=== PATIENT | male | born 1955 | race Caucasian/White ===

== ENCOUNTER → 2021-11-22 13:35 | Outpatient (CLI) | payer OTHER, SELFPAY ==
[2021-11-22 14:45] LABS: Add Manual Diff / Slide Review NO; Basophils Absolute Auto 100 /uL (0-100); Basophils Percent Auto 0.8 % (0-2); Eosinophils Absolute Auto 100 /uL (0-450); Eosinophils Percent Auto 1.1 % (2-4); Hematocrit 44.3 % (41-53); Hemoglobin 15.3 g/dL (13.5-17.5); Lymphocytes Absolute Auto 2500 /uL (1100-4500); Lymphocytes Percent Auto 32.2 % (25-40); Mean Corpuscular HGB Conc 34.5 % (30-36); Mean Corpuscular Hemoglobin 31.5 PG (26-34); Mean Corpuscular Volume 91.4 fL (80-100); Monocytes Absolute Auto 600 /uL (0-900); Neutrophils Absolute Auto 4400 /uL (1500-7000); Neutrophils Percent Auto 57.9 % (50-75); Platelet Count 204 X10^3/uL (150-400); Red Blood Cell Count 4.85 X10^6/uL (4.5-5.9); Red Cell Distribution Width 13.5 % (11.6-14.8); White Blood Cell Count 7.6 X10^3/uL (4.5-11.0)
[2021-11-22 17:15] LABS: BUN Creatinine Ratio 18.3 (6-22); Blood Urea Nitrogen 11 mg/dL (9-20); Calcium 9.6 mg/dL (8.4-10.2); Carbon Dioxide 21 mmol/L (22-32); Chloride 103 mmol/L (98-107); Cholesterol 309 mg/dL (140-199); Estimated Glomerular Filt Rate > 60 mL/min (>60); Glucose 261 mg/dL (80-110); HDL Cholesterol 34 mg/dL (40-60); HEMOLYSIS < 15 (0-50); LDL Cholesterol Calculated 215 mg/dL (<100); Potassium 4.3 mmol/L (3.4-5.1); Sodium 137 mmol/L (137-145); Triglycerides 298 mg/dL (35-150)
[2021-11-22 17:42] LABS: Prostate Specific Antigen Scrn 1.93 ng/mL (0.1-4.0)
[2021-11-22 19:14] LABS: Hep C Virus Ab w/Reflex Quant NEGATIVE s/c (NEGATIVE)
[2021-11-22 19:49] LABS: Creatinine Urine Random 144.4 mg/dL
[2021-11-22 19:53] LABS: Microalbumi Creatinin Ratio Ur 128.8 ug/mg CR (<30); Microalbumin Urine Random 18.6 mg/dL (0-1.6)
[2021-11-23 03:36] LABS: Fructosamine 436 umol/L (0-285)
== END ==
PROVIDERS: PCP Student in an Organized Health Care Education/Training Program; Referring Provider Student in an Organized Health Care Education/Training Program; Visit Provider Student in an Organized Health Care Education/Training Program
DX: I10 Essential (primary) hypertension (principal); Z12.5 Encounter for screening for malignant neoplasm of prostate; Z11.59 Encounter for screening for other viral diseases; K51.90 Ulcerative colitis, unspecified, without complications; Z13.220 Encounter for screening for lipoid disorders; E11.9 Type 2 diabetes mellitus without complications
CPT/HCPCS: 36415; 80048; 80061; 82043; 82570; 82985; 85025; 86803; G0103

== ENCOUNTER → 2022-01-24 10:42 | Outpatient (CLI) | payer OTHER, SELFPAY ==
--- NOTE | 2022-02-02 16:42 | DIAB.MNT ---
Initial Diabetes Medical Nutrition Therapy Assessment Name: Ger Sterling Date: 01/24/22 Time: [id number] Dx: Type II Diabetes Provider: Odalis Cyr presents for initial visit with his , Judi. States there were blood sugar concerns about 10 years ago, but just recently newly diagnosed. No HgA1c. Fructosamine lab high, 436. Glucose 261mg/dL. States Metformin made him feel unwell, achy and itchy. Currently taking glipizide 10mg BID. Reports previous BG of 390mg/dL 3 months ago with symptoms of dizziness, headaches, low energy, frequent urination, and dry mouth. Reports history of higher carb intake, sedentary job with access to sweets. States his diet is his biggest concern. Diet Recall: 8a: coffee black, 2c oatmeal with 1c berries and nuts sn: nothing, maybe handful of berries. 5p: salad with chicken OR taco salad OR 2c pea soup with ham Beverages: 1 gallon water, 24oz coffee Anthropometrics: Ht: 6'1 Wt: 300# reported Weight history: Last EMR wt 325# Physical Activity: Walks 3-4x per week for 45-60 min, yard work and house projects Self-Monitoring Blood Glucose: No log book or meter today. Last reading was 138mg/dL per report mid day Diabetes Medications: 10mg glipizide BID Pertinent Labs: 11/2021 Glucose 261mg/dl H Fructosamine 436 umol/l H T mg/dl H Cholesterol: 309 mg/dL H LDL: 215 mg/dL H HDL: 34 mg/dl L Past Medical History: (Last Updated 11/23/21 @ 09:19 by Issac Jacobo MD) Adenocarcinoma of colon Chicken pox Fractures (~2015) Measles Mumps Renal stone Sleep apnea (~2001) Ulcerative colitis (~1979) Nutrition Rx: Carbohydrates: Meal:45-60g Snack:15-30g Nutrition Diagnosis: - Inconsistent CHO intake r/t nutrition knowledge deficit aeb diet recall indicating high carb intake and long periods of fasting during the day - Self monitoring deficit r/t knowledge deficit aeb new dx dm and pt report Intervention: This participant was very receptive. Provided appropriate educational handouts. Discussed the following topics: Completed intake assessment. Discussed barriers to care. Pathophysiology of T2DM HgA1c, its correlation to blood glucose numbers, and rationale for goal Importance of self-monitoring, how often, and when to check. Suggested checking at different times to evaluate meals Plate Method, impact of macronutrients on blood sugar, meal timing, carbohydrate counting, pairing macronutrients and spreading out carbohydrates for better blood glucose management Recommended servings for carbohydrates at meals and snacks Heart health nutrition Brainstormed appropriate meal/snack ideas Role of physical activity and following provider guidelines for safety Created SMART goals for patient self-care and success. Goals: Keep oatmeal to 1.5c Check BG 1-2 x per day: FBG and 1-2 hour pc Add balanced afternoon snack Follow-up: LILLIANA NEWTON follow-up in 3-4 weeks for 1:1 follow-up and in March for DSME classes. Genie Horan RDN, [facility] Certified Diabetes Care and Detailer School Phot[employer] P: [phone] Thank you for this referral
== END ==
PROVIDERS: PCP Student in an Organized Health Care Education/Training Program; Referring Provider Student in an Organized Health Care Education/Training Program; Visit Provider Student in an Organized Health Care Education/Training Program
DX: E11.9 Type 2 diabetes mellitus without complications (principal); Z71.3 Dietary counseling and surveillance; Z79.84 Long term (current) use of oral hypoglycemic drugs
CPT/HCPCS: 97802

== ENCOUNTER → 2022-02-21 14:02 | Outpatient (CLI) | payer OTHER, SELFPAY ==
--- NOTE | 2022-02-21 15:22 | DIAB.MNTFU ---
Follow-up Diabetes Medical Nutrition Therapy Assessment Name: Ger Sterling Date: 02/21/22 Time: 220-310p Dx: Type II Diabetes Ger presents for follow-up with , Judi. States he has reduced oatmeal at breakfast, as discussed. Added a balanced snack in afternoon. Also has cut out carbs from dinner, only eating pro and veggies. All blood sugars are elevated. Continues taking glipizide XR x 10mg BID (max dose). Today he voiced interest in trying Metformin again at lower than max dose. h/o feeling unwell and achy on full dose. May benefit from HS insulin. Has been 3 months since PCP visit. No appt scheduled. Anthropometrics: Ht: 6'1 Wt: 300# reported last visit Weight history: Last EMR wt 325# Physical Activity: Very active at home but no structured exercise program. Has elliptical and stationary bike at home. Self-Monitoring Blood Glucose: All BG elevated in the 200-320mg/dl range. Date Pre Post Pre Post Pre Post HS 02/03 315 311 02/05 171 02/17 258 225 02/18 265 203 02/19 231 201 02/20 302 274 02/21 271 Diabetes Medications: 10mg glipizide BID Pertinent Labs: 11/2021 Glucose 261mg/dl H Fructosamine 436 umol/l H T mg/dl H Cholesterol: 309 mg/dL H LDL: 215 mg/dL H HDL: 34 mg/dl L Past Medical History: (Last Updated 11/23/21 @ 09:19 by Issac Jacobo MD) Adenocarcinoma of colon Chicken pox Fractures (~2015) Measles Mumps Renal stone Sleep apnea (~2001) Ulcerative colitis (~1979) Nutrition Rx: Carbohydrates: Meal:45-60g Snack:15-30g Nutrition Diagnosis: - Inconsistent CHO intake r/t nutrition knowledge deficit aeb diet recall indicating high carb intake and long periods of fasting during the day- improved - Self monitoring deficit r/t knowledge deficit aeb new dx dm and pt report - improved - Inconsistent physical activity r/t no specific exercise program aeb pt report - new Intervention: This participant was very receptive. Provided appropriate educational handouts. Discussed the following topics: Blood sugar review and trends. Impact of insulin resistance and beta cell insulin production on BG results Medication options: oral vs injection Physical activity plan and progress Created SMART goals for patient self-care and success. Goals: Keep oatmeal to 1.5c- met Check BG 1-2 x per day: FBG and 1-2 hour pc- met Add balanced afternoon snack- met Call PCP for follow-up visit- new Try to exercise after dinner for 10+ minutes 3-5 days per week- new Follow-up: LILLIANA NEWTON follow-up in 3-4 weeks for 1:1 follow-up and in March for DSME classes. This RD/LAM[facility] messaged his provider for medication guidance. Seems he may benefit from addition of Metformin and/or insulin. Ger is open to trying any of these options. Genie Horan RDN, [facility] Certified Diabetes Care and Armature Winder Helper Repair P: [phone] Thank you for this referral
== END ==
PROVIDERS: PCP Student in an Organized Health Care Education/Training Program; Referring Provider Student in an Organized Health Care Education/Training Program; Visit Provider Student in an Organized Health Care Education/Training Program
DX: E11.9 Type 2 diabetes mellitus without complications (principal); Z79.84 Long term (current) use of oral hypoglycemic drugs; Z71.3 Dietary counseling and surveillance
CPT/HCPCS: 97803

== ENCOUNTER → 2022-03-07 09:17 | Outpatient (CLI) | payer OTHER, SELFPAY ==
--- NOTE | 2022-03-09 13:50 | DIAB.FU ---
Diabetes Education Class Series: Diabetes and Nutrition Name: Ger Sterling Date: 03/07/21 Time: 930a-12p Dx: Type II Diabetes Ger presents for class 1 of 3 for diabetes education, accompanied by his Judi. States he has been working on diet. Has been avoiding carbohydrates recently to help manage BG. FBG seem to be the highest of BG during the day. Despite lifestyle changes he continues to have FBG above 200 with today 311 mg/dl. Has appt with PCP. PCP aware of hyperglycemia. Class topics covered: ? Debunk nutrition myths and discuss how to sustain healthy eating long-term through moderation and variety ? Define macronutrients and determine their impact on blood sugars ? Discuss macronutrient pairing, Plate Method, and carb counting ? Review general recommendations for carbohydrates ? Practice label reading ? Discuss the role of fiber in diabetes and provide examples of sources ? Review heart health nutrition: fats, fiber, and sodium ? Determine recommendations for grocery shopping and eating out ? Discuss alcohol recommendations ? Review the role of substitute sugars in diabetes management ? Set SMART goals Goal Set: Exercise 4 days per week for 15-30 minutes Follow-up: Diabetes Physiology and Medication Class in one week Genie Horan RDN, [facility] Certified Diabetes Care and Cold Storage Superintendent P: [phone] Thank you for this referral
== END ==
PROVIDERS: PCP Student in an Organized Health Care Education/Training Program; Referring Provider Student in an Organized Health Care Education/Training Program; Visit Provider Student in an Organized Health Care Education/Training Program
DX: E11.9 Type 2 diabetes mellitus without complications (principal); Z71.3 Dietary counseling and surveillance
CPT/HCPCS: G0109

== ENCOUNTER → 2022-03-14 11:59 | Outpatient (CLI) | payer OTHER, SELFPAY ==
[2022-03-14 13:01] LABS: Hemoglobin A1C% w Est Avg Glu 9.3 % (4.0-6.0)
[2022-03-14 13:12] LABS: Alanine Aminotransferase 33 IU/L (<50); Albumin 4.7 g/dL (3.5-5.0); Albumin Globulin Ratio 1.6 (1.0-2.8); Alkaline Phosphatase 103 U/L (38-126); Aspartate Aminotransferase 26 IU/L (17-59); BUN Creatinine Ratio 19.4 (6-22); Bilirubin Total 0.7 mg/dL (0.2-1.3); Bilirubin Unconjugated 0.4 mg/dL (0.0-1.1); Blood Urea Nitrogen 12 mg/dL (9-20); Calcium 9.7 mg/dL (8.4-10.2); Carbon Dioxide 24 mmol/L (22-32); Chloride 100 mmol/L (98-107); Cholesterol 247 mg/dL (140-199); Estimated Glomerular Filt Rate > 60 mL/min (>60); Glucose 209 mg/dL (80-110); HDL Cholesterol 38 mg/dL (40-60); HEMOLYSIS < 15 (0-50); LDL Cholesterol Calculated 143 mg/dL (<100); Potassium 4.1 mmol/L (3.4-5.1); Sodium 137 mmol/L (137-145); Total Protein 7.7 g/dL (6.3-8.2); Triglycerides 331 mg/dL (35-150)
[2022-03-14 16:00] LABS: Creatinine Urine Random 112.8 mg/dL
[2022-03-14 16:01] LABS: Microalbumi Creatinin Ratio Ur 138.2 ug/mg CR (<30); Microalbumin Urine Random 15.6 mg/dL (0-1.6)
== END ==
PROVIDERS: PCP Student in an Organized Health Care Education/Training Program; Referring Provider Student in an Organized Health Care Education/Training Program; Visit Provider Student in an Organized Health Care Education/Training Program
DX: E11.9 Type 2 diabetes mellitus without complications (principal); E11.69 Type 2 diabetes mellitus with other specified complication; I10 Essential (primary) hypertension; E78.5 Hyperlipidemia, unspecified; E11.29 Type 2 diabetes mellitus with other diabetic kidney complication; R80.9 Proteinuria, unspecified; Z79.899 Other long term (current) drug therapy
CPT/HCPCS: 36415; 80048; 80061; 80076; 82043; 82570; 83036; G0109

== ENCOUNTER → 2022-03-16 15:32 | Outpatient (CLI) | payer OTHER, SELFPAY ==
--- NOTE | 2022-03-30 15:35 | DIAB.FU ---
Follow-up Diabetes Education Assessment Name: Ger Sterling Date: 03/16/22 Time: 4-5p Dx: Type II Diabetes Ger presents for Dm follow-up with , Judi. States he saw his PCP earlier this week. Continues to have elevated BG despite low carb diet, though numbers have improved to 200s. Per provider notes, will rx GLP1 RA. Seems appropriate given benefit of wt loss. Taking Metformin with food as discussed last visit Taking Metamucil for fiber supplement. Water intake 160oz per day per report. Physical Activity: Trying to stay busy at home. Has stationary bike at home. has fitbit and thinking he may benefit from one. Hesitation by Nathan due to working so much with his hands on projects. had family in town recently, which impacted walking goal per report. Self-Monitoring Blood Glucose: 200-250 mg/dl, which is an improvement from previous visits. Diabetes Medications: 10mg glipizide BID Rx'd Exenatide 2mg weekly Pertinent Labs: 03/14/22 9.3% HgA1c Past Medical History: (Last Updated 11/23/21 @ 09:19 by Issac Jacobo MD) Adenocarcinoma of colon Chicken pox Fractures (~2015) Measles Mumps Renal stone Sleep apnea (~2001) Ulcerative colitis (~1979) Intervention: This participant was very receptive. Provided appropriate educational handouts. Discussed the following topics: Recent blood sugar results and trends Medication management: training on GLP1 injections and SE Review of general nutrition recommendations and current intake Physical activity plan and impact on blood sugars Potential for a pedometer to wear Created SMART goals for patient self-care and success. Goals: Call PCP for follow-up visit- met Try to exercise after dinner for 10+ minutes 3-5 days per week- not met Look into fitbit or pedometer- new space control supervisor new meds- new Bike or walk 10 min 2x per week- new Follow-up: LILLIANA NEWTON follow-up next week for class 3/3 DSME and 1:1 thereafter Genie Horna RDN, [facility] Certified Diabetes Care and Gericare Aide Teacher P: [phone] Thank you for this referral
== END ==
PROVIDERS: PCP Student in an Organized Health Care Education/Training Program; Referring Provider Student in an Organized Health Care Education/Training Program; Visit Provider Student in an Organized Health Care Education/Training Program
DX: E11.9 Type 2 diabetes mellitus without complications (principal); Z79.84 Long term (current) use of oral hypoglycemic drugs; Z71.3 Dietary counseling and surveillance
CPT/HCPCS: G0108

== ENCOUNTER → 2022-03-21 09:12 | Outpatient (CLI) | payer OTHER, SELFPAY ==
--- NOTE | 2022-03-29 16:33 | DIAB.FU ---
Follow-up Diabetes Education Assessment Name: Ger Sterling Date: 03/16/22 Time: 4-5p Dx: Type II Diabetes Ger presents for Dm follow-up with , Judi. States he saw his PCP earlier this week. Continues to have elevated BG despite low carb diet, though numbers have improved to 200s. Per provider notes, will rx GLP1 RA. Seems appropriate given benefit of wt loss. Taking Metformin with food as discussed last visit Taking Metamucil for fiber supplement. Water intake 160oz per day per report. Physical Activity: Trying to stay busy at home. Has stationary bike at home. has fitbit and thinking he may benefit from one. Hesitation by Nathan due to working so much with his hands on projects. had family in town recently, which impacted walking goal per report. Self-Monitoring Blood Glucose: 200-250 mg/dl, which is an improvement from previous visits. Diabetes Medications: 10mg glipizide BID Rx'd Exenatide 2mg weekly Pertinent Labs: 03/14/22 9.3% HgA1c Past Medical History: (Last Updated 11/23/21 @ 09:19 by Issac Jacobo MD) Adenocarcinoma of colon Chicken pox Fractures (~2015) Measles Mumps Renal stone Sleep apnea (~2001) Ulcerative colitis (~1979) Intervention: This participant was very receptive. Provided appropriate educational handouts. Discussed the following topics: Recent blood sugar results and trends Medication management: training on GLP1 injections and SE Review of general nutrition recommendations and current intake Physical activity plan and impact on blood sugars Potential for a pedometer to wear Created SMART goals for patient self-care and success. Goals: Call PCP for follow-up visit- met Try to exercise after dinner for 10+ minutes 3-5 days per week- not met Look into fitbit or pedometer- new coupler new meds- new Bike or walk 10 min 2x per week- new Follow-up: LILLIANA NEWTON follow-up next week for class 3/3 DSME and 1:1 thereafter Genie Horan RDN, [facility] Certified Diabetes Care and Civil Engineer Helper P: [phone] Thank you for this referral
--- NOTE | 2022-03-30 15:37 | DIAB.FU ---
Diabetes Education Class Series: Diabetes Lifestyle Change and Ongoing Support Name: Ger Sterling Date: 03/21/22 Time:[id number] Ger presents for class 3 with , Judi. States he has received new GLP1 RA and plans to start this week. continues to have elevated BG, but doing well with feeling satisfied with a low carb diet. Has pedometer to track steps. Working on increasing physical activity. Class topics covered: ? Discuss the difference between physical activity and exercise ? Determine physical activity benefits and impact on diabetes ? Review physical activity recommendations and safety ? Discuss emergency preparedness ? Discuss diabetes and emotions (diabetes burnout/distress) ? Review and practice stress management techniques ? Review support groups and community resources ? Discuss the role of family support in diabetes care ? What is going well? Challenges of diabetes? ? Set SMART goals Follow-up: 1:1 visit follow-up Genie Horan RDN, [facility] Registered Dietitian, Certified Diabetes Care and Mammal Control Agent [phone] [email or web address]
== END ==
PROVIDERS: PCP Student in an Organized Health Care Education/Training Program; Referring Provider Student in an Organized Health Care Education/Training Program; Visit Provider Student in an Organized Health Care Education/Training Program
DX: E11.9 Type 2 diabetes mellitus without complications (principal); Z71.3 Dietary counseling and surveillance
CPT/HCPCS: G0109

== ENCOUNTER → 2022-04-20 10:22 | Outpatient (CLI) | payer OTHER, SELFPAY ==
--- NOTE | 2022-05-03 11:35 | DIAB.MNTFU ---
Follow-up Diabetes Medical Nutrition Therapy Assessment Name: Ger Sterling Date: 04/20/22 Time: a Dx: Type II Diabetes Ger presents for follow-up with , Judi. Reports much improved BG with appropriate lifestyle changes and medication regimen. Endorses more energy. Continues on low carb diet. Endorses satiety with current diet. Higher fiber options currently include berries, nuts, beans, supplement. Has questions regarding fruit consumption and portions, especially for summer. No current PCP f/u scheduled. Anthropometrics: No weight this visit Physical Activity: Wearing step tracker and getting [id number] steps per day. Self-Monitoring Blood Glucose: FBG down to 120-134mg/dl and 2 hour pc lunch readings 100-115mg/dl. Checking q 3-4 days now and most in goal. Diabetes Medications: 10mg glipizide BID Metformin 500mg ER Exenatide 2mg weekly Pertinent Labs: 03/14/22 9.3% HgA1c Past Medical History: (Last Updated 11/23/21 @ 09:19 by Issac Jacobo MD) Adenocarcinoma of colon Chicken pox Fractures (~2015) Measles Mumps Renal stone Sleep apnea (~2001) Ulcerative colitis (~1979) Nutrition Rx: Plate Method Nutrition Diagnosis: - Inconsistent physical activity r/t no specific exercise program aeb pt report - continue - Predicted inadequate fiber intake r/t limited whole grains and fruit aeb pt report - new Intervention: This participant was very receptive. Provided appropriate educational handouts. Discussed the following topics: Blood sugar review and trends. Fruit portions and fiber benefits Medication management and improved BG Importance of follow-up with provider Physical activity plan Created SMART goals for patient self-care and success. Goals: Look into fitbit or pedometer- met installation superintendent new meds- met Bike or walk 10 min 2x per week- in progress Add fruit to dinner- new Keep fruit portion to 1-2c per serving-new Schedule f/u with PCP- new Follow-up: LILLIANA NEWTON follow-up in February. Overall Ger has been managing BG well with new meds and continued lifestyle changes. Anticipate much improved HgA1c next labs. Encouraged him to call or message with any questions. Genie Horan RDN, [facility] Certified Diabetes Care and Desk Lieutenant P: [phone] Thank you for this referral
== END ==
PROVIDERS: PCP Student in an Organized Health Care Education/Training Program; Referring Provider Student in an Organized Health Care Education/Training Program; Visit Provider Student in an Organized Health Care Education/Training Program
DX: E11.9 Type 2 diabetes mellitus without complications (principal); Z71.3 Dietary counseling and surveillance; Z79.84 Long term (current) use of oral hypoglycemic drugs
CPT/HCPCS: 97803

== ENCOUNTER → 2022-06-01 10:19 | Outpatient (CLI) | payer OTHER, SELFPAY ==
[2022-06-03 05:45] LABS: Fructosamine 267 umol/L (0-285)
== END ==
PROVIDERS: PCP Student in an Organized Health Care Education/Training Program; Referring Provider Student in an Organized Health Care Education/Training Program; Visit Provider Student in an Organized Health Care Education/Training Program
DX: E11.29 Type 2 diabetes mellitus with other diabetic kidney complication (principal); R80.9 Proteinuria, unspecified
CPT/HCPCS: 36415; 82985

== ENCOUNTER → 2023-03-13 11:56 | Outpatient (CLI) | payer OTHER, SELFPAY | PROVIDERS: PCP Student in an Organized Health Care Education/Training Program; Visit Provider Physician Assistant | DX: R68.83 Chills (without fever) (principal); R30.0 Dysuria | CPT/HCPCS: 87086 ==

== ENCOUNTER 2023-03-13 12:25 | Emergency (ER) | payer OTHER, SELFPAY ==
[2023-03-13] VITALS (14 sets, daily range): BP systolic 117–145; BP diastolic 59–87; PULSE 98–113; RESP 18–31; TEMP 37; O2SAT 93–99; BMI 45.2
--- NOTE | 2023-03-13 12:44 | DI.RAD.S_ITS ---
PROCEDURE: XR CHEST 1V INDICATIONS: Shortness of breath TECHNIQUE: One view of the chest was acquired. COMPARISON: None. FINDINGS: Surgical changes and devices: None. Lungs and pleura: Lungs are clear. No pleural effusions or pneumothorax. Mediastinum: Mediastinal contours appear normal. Heart size is normal. Bones and chest wall: No suspicious bony lesions. Overlying soft tissues appear unremarkable. IMPRESSION: No acute cardiopulmonary abnormality is seen. Dictated by: Ishmael Johnson M.D. on 03/13/2023 at 13:01 Approved by: Ishmael Johnson M.D. on 03/13/2023 at 13:01
--- NOTE | 2023-03-13 13:23 | PC.NURSE ---
Pt reports N/V, chills, recent fever, SOB x several days. Recently started Ozempic, reports constipation.
[2023-03-13 13:27] LABS: Add Manual Diff / Slide Review NO; Basophils Absolute Auto 0 /uL (0-100); Basophils Percent Auto 0.2 % (0-2); Eosinophils Absolute Auto 0 /uL (0-450); Eosinophils Percent Auto 0.1 % (2-4); Hematocrit 40.6 % (41-53); Hemoglobin 14.4 g/dL (13.5-17.5); Lymphocytes Absolute Auto 500 /uL (1100-4500); Lymphocytes Percent Auto 6.2 % (25-40); Mean Corpuscular HGB Conc 35.5 % (30-36); Mean Corpuscular Hemoglobin 31.5 PG (26-34); Mean Corpuscular Volume 88.9 fL (80-100); Monocytes Absolute Auto 700 /uL (0-900); Monocytes Percent Auto 8.9 % (3-14); Neutrophils Absolute Auto 7000 /uL (1500-7000); Neutrophils Percent Auto 84.6 % (50-75); Platelet Count 167 X10^3/uL (150-400); Red Blood Cell Count 4.57 X10^6/uL (4.5-5.9); Red Cell Distribution Width 13.9 % (11.6-14.8); White Blood Cell Count 8.3 X10^3/uL (4.5-11.0)
[2023-03-13 13:35] LABS: Lactate (Lactic Acid) 1.7 mmol/L (0.7-2.1)
[2023-03-13 13:36] LABS: Alanine Aminotransferase 41 IU/L (<50); Albumin 4.4 g/dL (3.5-5.0); Albumin Globulin Ratio 1.1 (1.0-2.8); Alkaline Phosphatase 167 U/L (38-126); Aspartate Aminotransferase 40 IU/L (17-59); Bilirubin Total 1.4 mg/dL (0.2-1.3); Blood Urea Nitrogen 34 mg/dL (9-20); Carbon Dioxide 19 mmol/L (22-32); Chloride 95 mmol/L (98-107); Estimated Glomerular Filt Rate > 60 mL/min (>60); Globulin 3.9 g/dL (1.7-4.1); Glucose 312 mg/dL (80-110); HEMOLYSIS < 15 (0-50); Potassium 3.7 mmol/L (3.4-5.1); Sodium 129 mmol/L (137-145); Total Protein 8.3 g/dL (6.3-8.2)
[2023-03-13 13:48] LABS: INR 1.2 (0.9-1.3); NT-proBNP (BNP-Adult 18+) 154 pg/mL (<125); Prothrombin Time 13.3 SECONDS (9.4-12.5); Troponin I < 0.012 ng/mL (0.01-0.034)
[2023-03-13 14:16] LABS: COVID-19 CEPHEID 4-PLEX PCR Negative (Negative); Influenza A - CEPHEID Flu A NEGATIVE (NEGATIVE); Influenza B - CEPHEID Flu B NEGATIVE (NEGATIVE); Respiratory Syncytial Virus Negative (Negative)
[2023-03-13] MEDS: SODIUM CHLORIDE 0.9% 1,000 ML 1000 ML IV ×2 (15:58→17:55)
[2023-03-13] MEDS: ONDANSETRON 4 MG/2 ML INJ IV (15:58)
[2023-03-13 16:03] LABS: Bacteria Urine Many (>30); RBC Urine 10-30/HPF (0-5/HPF); Squamous Epithelial Cell Urine 1-5 /HPF (0-5/HPF); WBC Urine >100/HPF (0-5/HPF)
[2023-03-13 16:06] LABS: PCO2 VBG 36.2 mmHg (45-50); PO2 VBG 23 mmHg (35-45); pH VBG 7.39 (7.33-7.43)
[2023-03-13 16:07] LABS: Fractionated Inspired Oxygen 21; HCO3 VBG 22 mmol/L (24-28); Oxygen Saturation VBG 41 % (70-75); Total CO2 VBG 23 mmol/L (24-29)
[2023-03-13] MEDS: cefTRIAXone 1,000 MG in SODIUM CHLORIDE 0.9% 100 ML 200 MG IV (17:54)
--- NOTE | 2023-03-13 18:10 | ED_ITS ---
HPI - General Adult <Madison Magaña PA-C - Last Filed: 03/13/23 18:27> General Chief complaint: Shortness of Breath/Dyspnea Stated complaint: Heart Rate, Urine protein, headache, body aches Time Seen by Provider: 03/13/23 14:02 Source: patient Mode of arrival: Ambulatory History of Present Illness HPI narrative: 67-year-old male with past medical history type 2 diabetes, hyperlipidemia, morbid obesity, essential hypertension, atrial fibrillation presents to the ED with 4 days of cloudy/dark urine, fatigue, muscle aches, anorexia, dry heaves/nausea. Patient states that he had a fever when he had onset of the symptoms initially but the fever resolved since then. Patient was started on Ozempic for the diabetes 6 weeks ago, patient is wondering if his symptoms are side-effect of Ozempic. Patient denies chest pain, shortness of breath, abdominal pain, dysuria. Patient was seen in the walk-in clinic earlier today, sent to the ED for further evaluation. Patient also took a COVID test at home yesterday which was negative. Related Data Home Medications Medication Instructions Recorded Confirmed ascorbic acid (vitamin C) 500 mg 500 mg PO DAILY 06/30/20 03/13/23 capsule aspirin 81 mg tablet,delayed 81 mg PO DAILY 11/23/21 03/13/23 release Previous Rx's Medication Instructions Recorded sildenafil (pulm.hypertension) 20 20 - 100 mg (1 - 5 x 20 mg) PO 11/22/21 mg tablet DAILY PRN sexual activity #30 tabs blood sugar test strips #1 ea 01/25/22 blood-glucose meter #1 ea 01/25/22 carvedilol 12.5 mg tablet 12.5 mg PO BID #180 tabs 03/14/22 DISABLED PARKING PERMIT #1 ea 08/29/22 lisinopril 5 mg tablet 5 mg PO DAILY #90 tabs 12/08/22 atorvastatin 40 mg tablet 40 mg PO BEDTIME #90 tabs 01/02/23 gabapentin 800 mg tablet 800 mg PO BID #240 tabs 02/20/23 metformin 500 mg tablet,extended 1,000 mg (2 x 500 mg) PO BID #240 02/20/23 release 24 hr tabs semaglutide 1 mg/dose (4 mg/3 mL) 1 mg (0.75 mL) SUBCUT QWEEK #3 mL 02/20/23 subcutaneous pen injector cefpodoxime 200 mg tablet 200 mg PO Q12H 10 days #20 tabs 03/13/23 Allergies Allergy/AdvReac Type Severity Reaction Status Date / Time No Known Drug Allergies Allergy Unverified 03/13/23 12:04 Review of Systems <Madison Magaañ PA-C - Last Filed: 03/13/23 18:27> Constitutional Constitutional: Denies chills, Reports fatigue, Reports fever(s), Denies frequent falls, Denies lethargy and Denies weakness Eyes Eyes: Denies change in vision, Denies eye discharge, Denies irritation and Denies loss of vision ENT Ears, Nose, Mouth, and Throat: Denies change in voice, Denies dizziness, Denies neck pain, Denies sore throat and Denies throat swelling Cardiovascular Cardiovascular: Denies chest pain, Denies irregular heart rhythm, Denies lightheadedness, Denies palpitations, Denies dyspnea, Denies dyspnea on exertion and Denies orthopnea Respiratory Respiratory: Denies cough, Denies dyspnea, Denies dyspnea on exertion and Denies wheezing Gastrointestinal Gastrointestinal: Denies abdominal pain, Denies change in bowel habits, Denies diarrhea, Reports nausea and Denies vomiting Genitourinary Comments: Dark, cloudy urine Musculoskeletal Musculoskeletal: Denies neck pain and Denies numbness Integumentary/Breasts Skin/Breast: Denies pruritus, Denies erythema, Denies rash and Denies wounds Neurologic Neurologic: Denies behavioral changes, Denies confusion, Denies dizziness, Denies frequent falls, Denies loss of vision, Denies numbness and Denies weakness Psychiatric Psychiatric: Denies anxiety, Denies behavioral changes, Denies confusion, Denies depression, Denies homicidal ideation and Denies suicidal ideation Endocrine Endocrine: Reports fatigue, Denies flushing and Denies palpitations Hematologic/Lymphatic Hematologic/Lymphatic: Denies easy bruising Allergic/Immunologic Allergic/Immunologic: Denies urticaria, Denies throat swelling and Denies wheezing Patient History <Madison Magaña PA-C - Last Filed: 03/13/23 18:27> Medical History Peripheral neuropathy Renal stone Sleep apnea (~2001) Fractures (~2015) Mumps Measles Chicken pox Adenocarcinoma of colon Ulcerative colitis (~1979) Surgical History Anesthesia History of appendectomy (~04/22/20) Family History Father Gangrene Mother Embolism Brother Cancer Brother History of heart disease Grandmother No problems noted. Other Adenocarcinoma of colon Social History Smoking Status: Former smoker Smoking Status: Former smoker Substance Use Type: does not use Exam <Madison Magaña PA-C - Last Filed: 03/13/23 18:27> Narrative Exam Narrative: Const General:?cooperative, healthy appearing and comfortable HENMT Head:?normal to inspection Ears:?hearing grossly normal bilaterally Nose:?external nose normal Face and sinus:?normal facial exam and sinuses nontender Mouth:?oral mucosae normal Throat:?posterior oropharynx normal Eyes General:?appearance normal, both eyes and all related structures Neck Neck:?normal visual inspection and no lymphadenopathy noted Resp Effort & Inspection:?normal respiratory effort Auscultation:?clear to auscultation bilaterally Cardio Rate:?regular rate Rhythm:?regular rhythm GI No CVA tenderness Neuro General:?patient alert, patient awake and patient oriented x3 Initial Vital Signs Initial Vital Signs: Vital Signs Temperature 98.6 F 03/13/23 12:34 Pulse Rate 113 H 03/13/23 12:34 Respiratory Rate 24 03/13/23 12:34 Blood Pressure 141/85 H 03/13/23 12:34 Pulse Oximetry 96 03/13/23 12:34 Oxygen Delivery Method Room Air 03/13/23 12:34 <Black Rosario MD - Last Filed: 03/13/23 18:46> Initial Vital Signs Initial Vital Signs: Vital Signs Temperature 98.6 F 03/13/23 12:34 Pulse Rate 113 H 03/13/23 12:34 Respiratory Rate 24 03/13/23 12:34 Blood Pressure 141/85 H 03/13/23 12:34 Pulse Oximetry 96 03/13/23 12:34 Oxygen Delivery Method Room Air 03/13/23 12:34 Course <Madison Magaña PA-C - Last Filed: 03/13/23 18:27> Orders Ordered: ED Orders 03/13/23 11:56 Urine Microscopic Stat 03/13/23 12:40 Covid-19 + FLU A/B + RSV - PCR Stat 03/13/23 12:44 XR chest 1V Stat EKG-12 Lead Stat Measure peak expiratory flow ONCE RT Consult Eval and Treat NOW 03/13/23 12:57 Complete Blood Count AUTO DIFF Stat Comprehensive Metabolic Panel Stat Lactate (Lactic Acid) Stat NT-proBNP (BNP-Adult 18+) Stat Prothrombin Time INR Stat Troponin I Stat 03/13/23 15:55 VBG [Venous Blood Gas] Stat Discontinued Medications Acetaminophen (Acetaminophen 325 Mg Tablet) 975 mg PO NOW ONE Stop: 03/13/23 18:44 Sodium Chloride (Normal Saline 0.9%) 1,000 mls @ 1,000 mls/hr IV BOLUS ONE Stop: 03/13/23 16:38 Last Infusion: 03/13/23 17:06 Dose: Infused Documented By: Admin: 03/13/23 15:58 Dose: 1,000 mls/hr Documented By: DIMPLE(2) Ceftriaxone Sodium 1,000 mg/ (Sodium Chloride) 100 mls @ 200 mls/hr IV NOW ONE Stop: 03/13/23 17:17 Last Admin: 03/13/23 17:54 Dose: 200 mls/hr Documented By: DIMPLE(2) Sodium Chloride (Normal Saline 0.9%) 1,000 mls @ 1,000 mls/hr IV BOLUS ONE Stop: 03/13/23 18:16 Last Admin: 03/13/23 17:55 Dose: 1,000 mls/hr Documented By: DIMPLE(2) Ondansetron HCl (Ondansetron 4 Mg/2 Ml Inj) 4 mg IV NOW ONE Stop: 03/13/23 15:42 Last Admin: 03/13/23 15:58 Dose: 4 mg Documented By: DIMPLE(2) Vital Signs Vital signs: Vital Signs - 8 hr 03/13/23 12:34 03/13/23 13:06 03/13/23 13:11 Temperature 98.6 F Pulse Rate 113 H 110 H Respiratory Rate 24 Blood Pressure 141/85 H 122/72 Pulse Oximetry 96 97 Oxygen Delivery Method Room Air 03/13/23 13:11 03/13/23 13:30 03/13/23 13:30 Temperature Pulse Rate 108 H 108 H Respiratory Rate 24 20 Blood Pressure 127/59 L Pulse Oximetry 94 94 Oxygen Delivery Method 03/13/23 14:00 03/13/23 14:00 03/13/23 14:30 Temperature Pulse Rate 103 H Respiratory Rate 24 Blood Pressure 126/65 117/64 Pulse Oximetry 93 Oxygen Delivery Method 03/13/23 14:30 03/13/23 15:00 03/13/23 15:00 Temperature Pulse Rate 104 H 105 H Respiratory Rate 21 19 Blood Pressure 129/66 Pulse Oximetry 93 95 Oxygen Delivery Method 03/13/23 15:30 03/13/23 15:31 03/13/23 15:31 Temperature Pulse Rate 110 H 109 H Respiratory Rate 29 H 31 H Blood Pressure 145/87 H Pulse Oximetry Oxygen Delivery Method 03/13/23 16:30 03/13/23 17:04 03/13/23 17:04 Temperature Pulse Rate 101 H Respiratory Rate 26 H Blood Pressure 140/80 137/70 Pulse Oximetry 97 96 Oxygen Delivery Method Room Air 03/13/23 17:06 03/13/23 18:00 03/13/23 18:39 Temperature Pulse Rate 107 H 99 H 98 H Respiratory Rate 18 18 Blood Pressure 137/70 140/74 141/77 H Pulse Oximetry 99 97 97 Oxygen Delivery Method Room Air Room Air Room Air <Black Rosaroi MD - Last Filed: 03/13/23 18:46> Orders Ordered: ED Orders 03/13/23 11:56 Urine Microscopic Stat 03/13/23 12:40 Covid-19 + FLU A/B + RSV - PCR Stat 03/13/23 12:44 XR chest 1V Stat EKG-12 Lead Stat Measure peak expiratory flow ONCE RT Consult Eval and Treat NOW 03/13/23 12:57 Complete Blood Count AUTO DIFF Stat Comprehensive Metabolic Panel Stat Lactate (Lactic Acid) Stat NT-proBNP (BNP-Adult 18+) Stat Prothrombin Time INR Stat Troponin I Stat 03/13/23 15:55 VBG [Venous Blood Gas] Stat Discontinued Medications Acetaminophen (Acetaminophen 325 Mg Tablet) 975 mg PO NOW ONE Stop: 03/13/23 18:44 Sodium Chloride (Normal Saline 0.9%) 1,000 mls @ 1,000 mls/hr IV BOLUS ONE Stop: 03/13/23 16:38 Last Infusion: 03/13/23 17:06 Dose: Infused Documented By: Admin: 03/13/23 15:58 Dose: 1,000 mls/hr Documented By: DIMPLE(2) Ceftriaxone Sodium 1,000 mg/ (Sodium Chloride) 100 mls @ 200 mls/hr IV NOW ONE Stop: 03/13/23 17:17 Last Admin: 03/13/23 17:54 Dose: 200 mls/hr Documented By: DIMPLE(2) Sodium Chloride (Normal Saline 0.9%) 1,000 mls @ 1,000 mls/hr IV BOLUS ONE Stop: 03/13/23 18:16 Last Admin: 03/13/23 17:55 Dose: 1,000 mls/hr Documented By: DIMPLE(2) Ondansetron HCl (Ondansetron 4 Mg/2 Ml Inj) 4 mg IV NOW ONE Stop: 03/13/23 15:42 Last Admin: 03/13/23 15:58 Dose: 4 mg Documented By: DIMPLE(2) Vital Signs Vital signs: Vital Signs - 8 hr 03/13/23 12:34 03/13/23 13:06 03/13/23 13:11 Temperature 98.6 F Pulse Rate 113 H 110 H Respiratory Rate 24 Blood Pressure 141/85 H 122/72 Pulse Oximetry 96 97 Oxygen Delivery Method Room Air 03/13/23 13:11 03/13/23 13:30 03/13/23 13:30 Temperature Pulse Rate 108 H 108 H Respiratory Rate 24 20 Blood Pressure 127/59 L Pulse Oximetry 94 94 Oxygen Delivery Method 03/13/23 14:00 03/13/23 14:00 03/13/23 14:30 Temperature Pulse Rate 103 H Respiratory Rate 24 Blood Pressure 126/65 117/64 Pulse Oximetry 93 Oxygen Delivery Method 03/13/23 14:30 03/13/23 15:00 03/13/23 15:00 Temperature Pulse Rate 104 H 105 H Respiratory Rate 21 19 Blood Pressure 129/66 Pulse Oximetry 93 95 Oxygen Delivery Method 03/13/23 15:30 03/13/23 15:31 03/13/23 15:31 Temperature Pulse Rate 110 H 109 H Respiratory Rate 29 H 31 H Blood Pressure 145/87 H Pulse Oximetry Oxygen Delivery Method 03/13/23 16:30 03/13/23 17:04 03/13/23 17:04 Temperature Pulse Rate 101 H Respiratory Rate 26 H Blood Pressure 140/80 137/70 Pulse Oximetry 97 96 Oxygen Delivery Method Room Air 03/13/23 17:06 03/13/23 18:00 03/13/23 18:39 Temperature Pulse Rate 107 H 99 H 98 H Respiratory Rate 18 18 Blood Pressure 137/70 140/74 141/77 H Pulse Oximetry 99 97 97 Oxygen Delivery Method Room Air Room Air Room Air Medical Decision Making <Madison Magaña PA-C - Last Filed: 03/13/23 18:27> Lab Data 03/13/23 12:57 03/13/23 12:57 Labs: Lab Results 03/13/23 03/13/23 03/13/23 Range/Units 11:56 12:40 12:57 WBC 8.3 (4.5-11.0) X10^3/uL RBC 4.57 (4.5-5.9) X10^6/uL Hgb 14.4 (13.5-17.5) g/dL Hct 40.6 L (41-53) % MCV 88.9 (80-100) fL MCH 31.5 (26-34) PG MCHC 35.5 (30-36) % RDW 13.9 (11.6-14.8) % Plt Count 167 (150-400) X10^3/uL Neut % (Auto) 84.6 H (50-75) % Lymph % (Auto) 6.2 L (25-40) % Dale % (Auto) 8.9 (3-14) % Eos % (Auto) 0.1 L (2-4) % Baso % (Auto) 0.2 (0-2) % Neut # (Auto) 7000 (4592-3522) /uL Lymph # (Auto) 500 L (4583-1923) /uL Dale # (Auto) 700 (0-900) /uL Eos # (Auto) 0 (0-450) /uL Baso # (Auto) 0 (0-100) /uL PT 13.3 H (9.4-12.5) SECONDS INR 1.2 (0.9-1.3) VBG pH (7.33-7.43) VBG pCO2 (45-50) mmHg VBG pO2 (35-45) mmHg VBG HCO3 (24-28) mmol/L VBG Total CO2 (24-29) mmol/L VBG O2 Saturation (70-75) % VBG Base Excess (0-4) mmol/L FiO2 Sodium 129 L (137-145) mmol/L Potassium 3.7 (3.4-5.1) mmol/L Chloride 95 L (98-107) mmol/L Carbon Dioxide 19 L (22-32) mmol/L BUN 34 H (9-20) mg/dL Creatinine 1.00 (0.66-1.25) mg/dL Estimated GFR > 60 (>60) mL/min BUN/Creatinine Ratio 34.0 H (6-22) Glucose 312 H (80-110) mg/dL Lactate 1.7 (0.7-2.1) mmol/L Calcium 10.0 (8.4-10.2) mg/dL Total Bilirubin 1.4 H (0.2-1.3) mg/dL AST 40 (17-59) IU/L ALT 41 (<50) IU/L Alkaline Phosphatase 167 H (38-126) U/L Troponin I < 0.012 (0.01-0.034) ng/mL NT-Pro-B Natriuret Pep 154 H (<125) pg/mL Total Protein 8.3 H (6.3-8.2) g/dL Albumin 4.4 (3.5-5.0) g/dL Globulin 3.9 (1.7-4.1) g/dL Albumin/Globulin Ratio 1.1 (1.0-2.8) Urine RBC 10-30/hpf H (0-5/HPF) Urine WBC >100/hpf H (0-5/HPF) Ur Squamous Epith Cells 1-5 /hpf (0-5/HPF) Urine Bacteria Many (>30) H (None) SARS-CoV-2 (PCR) Negative (Negative) Influenza A (RT-PCR) Flu a negative (NEGATIVE) Influenza B (RT-PCR) Flu b negative (NEGATIVE) RSV (PCR) Negative (Negative) 03/13/23 Range/Units 15:55 WBC (4.5-11.0) X10^3/uL RBC (4.5-5.9) X10^6/uL Hgb (13.5-17.5) g/dL Hct (41-53) % MCV (80-100) fL MCH (26-34) PG MCHC (30-36) % RDW (11.6-14.8) % Plt Count (150-400) X10^3/uL Neut % (Auto) (50-75) % Lymph % (Auto) (25-40) % Dale % (Auto) (3-14) % Eos % (Auto) (2-4) % Baso % (Auto) (0-2) % Neut # (Auto) (6824-8297) /uL Lymph # (Auto) (5426-4320) /uL Dale # (Auto) (0-900) /uL Eos # (Auto) (0-450) /uL Baso # (Auto) (0-100) /uL PT (9.4-12.5) SECONDS INR (0.9-1.3) VBG pH 7.39 (7.33-7.43) VBG pCO2 36.2 L (45-50) mmHg VBG pO2 23 L (35-45) mmHg VBG HCO3 22 L (24-28) mmol/L VBG Total CO2 23 L (24-29) mmol/L VBG O2 Saturation 41 L (70-75) % VBG Base Excess -3.0 L (0-4) mmol/L FiO2 21 Sodium (137-145) mmol/L Potassium (3.4-5.1) mmol/L Chloride (98-107) mmol/L Carbon Dioxide (22-32) mmol/L BUN (9-20) mg/dL Creatinine (0.66-1.25) mg/dL Estimated GFR (>60) mL/min BUN/Creatinine Ratio (6-22) Glucose (80-110) mg/dL Lactate (0.7-2.1) mmol/L Calcium (8.4-10.2) mg/dL Total Bilirubin (0.2-1.3) mg/dL AST (17-59) IU/L ALT (<50) IU/L Alkaline Phosphatase (38-126) U/L Troponin I (0.01-0.034) ng/mL NT-Pro-B Natriuret Pep (<125) pg/mL Total Protein (6.3-8.2) g/dL Albumin (3.5-5.0) g/dL Globulin (1.7-4.1) g/dL Albumin/Globulin Ratio (1.0-2.8) Urine RBC (0-5/HPF) Urine WBC (0-5/HPF) Ur Squamous Epith Cells (0-5/HPF) Urine Bacteria (None) SARS-CoV-2 (PCR) (Negative) Influenza A (RT-PCR) (NEGATIVE) Influenza B (RT-PCR) (NEGATIVE) RSV (PCR) (Negative) MDM Narrative Medical decision making narrative: 67-year-old male with past medical history type 2 diabetes, hyperlipidemia, morbid obesity, essential hypertension, atrial fibrillation presents to the ED with 4 days of cloudy/dark urine, fatigue, muscle aches, anorexia, dry heaves/nausea. Concern for UTI versus dehydration versus electrolyte derangements versus ACS versus other. Will obtain EKG, chest x-ray, labs, UA. EKG is sinus tachycardia, no acute ST T changes, no axis deviations. Chest x- ray without acute findings. Labs consistent with mild dehydration. UA positive for UTI. UA was positive for ketones. VBG was obtained, pH normal, unlikely DKA. Patient given 2 L of IV fluids, 1 g of Rocephin IV. Prescribed cefpodoxime. Discussed findings with patient. Recommend good hydration. Recommend continuing the Ozempic for adequate glycemic control. ED return precautions discussed with patient. Patient verbalized understanding. Medical records reviewed: Yes <Black Rosario MD - Last Filed: 03/13/23 18:46> Lab Data Labs: Lab Results 03/13/23 03/13/23 03/13/23 Range/Units 11:56 12:40 12:57 WBC 8.3 (4.5-11.0) X10^3/uL RBC 4.57 (4.5-5.9) X10^6/uL Hgb 14.4 (13.5-17.5) g/dL Hct 40.6 L (41-53) % MCV 88.9 (80-100) fL MCH 31.5 (26-34) PG MCHC 35.5 (30-36) % RDW 13.9 (11.6-14.8) % Plt Count 167 (150-400) X10^3/uL Neut % (Auto) 84.6 H (50-75) % Lymph % (Auto) 6.2 L (25-40) % Dale % (Auto) 8.9 (3-14) % Eos % (Auto) 0.1 L (2-4) % Baso % (Auto) 0.2 (0-2) % Neut # (Auto) 7000 (3187-4487) /uL Lymph # (Auto) 500 L (1295-1858) /uL Dale # (Auto) 700 (0-900) /uL Eos # (Auto) 0 (0-450) /uL Baso # (Auto) 0 (0-100) /uL PT 13.3 H (9.4-12.5) SECONDS INR 1.2 (0.9-1.3) VBG pH (7.33-7.43) VBG pCO2 (45-50) mmHg VBG pO2 (35-45) mmHg VBG HCO3 (24-28) mmol/L VBG Total CO2 (24-29) mmol/L VBG O2 Saturation (70-75) % VBG Base Excess (0-4) mmol/L FiO2 Sodium 129 L (137-145) mmol/L Potassium 3.7 (3.4-5.1) mmol/L Chloride 95 L (98-107) mmol/L Carbon Dioxide 19 L (22-32) mmol/L BUN 34 H (9-20) mg/dL Creatinine 1.00 (0.66-1.25) mg/dL Estimated GFR > 60 (>60) mL/min BUN/Creatinine Ratio 34.0 H (6-22) Glucose 312 H (80-110) mg/dL Lactate 1.7 (0.7-2.1) mmol/L Calcium 10.0 (8.4-10.2) mg/dL Total Bilirubin 1.4 H (0.2-1.3) mg/dL AST 40 (17-59) IU/L ALT 41 (<50) IU/L Alkaline Phosphatase 167 H (38-126) U/L Troponin I < 0.012 (0.01-0.034) ng/mL NT-Pro-B Natriuret Pep 154 H (<125) pg/mL Total Protein 8.3 H (6.3-8.2) g/dL Albumin 4.4 (3.5-5.0) g/dL Globulin 3.9 (1.7-4.1) g/dL Albumin/Globulin Ratio 1.1 (1.0-2.8) Urine RBC 10-30/hpf H (0-5/HPF) Urine WBC >100/hpf H (0-5/HPF) Ur Squamous Epith Cells 1-5 /hpf (0-5/HPF) Urine Bacteria Many (>30) H (None) SARS-CoV-2 (PCR) Negative (Negative) Influenza A (RT-PCR) Flu a negative (NEGATIVE) Influenza B (RT-PCR) Flu b negative (NEGATIVE) RSV (PCR) Negative (Negative) 03/13/23 Range/Units 15:55 WBC (4.5-11.0) X10^3/uL RBC (4.5-5.9) X10^6/uL Hgb (13.5-17.5) g/dL Hct (41-53) % MCV (80-100) fL MCH (26-34) PG MCHC (30-36) % RDW (11.6-14.8) % Plt Count (150-400) X10^3/uL Neut % (Auto) (50-75) % Lymph % (Auto) (25-40) % Dale % (Auto) (3-14) % Eos % (Auto) (2-4) % Baso % (Auto) (0-2) % Neut # (Auto) (9023-1527) /uL Lymph # (Auto) (2275-0786) /uL Dale # (Auto) (0-900) /uL Eos # (Auto) (0-450) /uL Baso # (Auto) (0-100) /uL PT (9.4-12.5) SECONDS INR (0.9-1.3) VBG pH 7.39 (7.33-7.43) VBG pCO2 36.2 L (45-50) mmHg VBG pO2 23 L (35-45) mmHg VBG HCO3 22 L (24-28) mmol/L VBG Total CO2 23 L (24-29) mmol/L VBG O2 Saturation 41 L (70-75) % VBG Base Excess -3.0 L (0-4) mmol/L FiO2 21 Sodium (137-145) mmol/L Potassium (3.4-5.1) mmol/L Chloride (98-107) mmol/L Carbon Dioxide (22-32) mmol/L BUN (9-20) mg/dL Creatinine (0.66-1.25) mg/dL Estimated GFR (>60) mL/min BUN/Creatinine Ratio (6-22) Glucose (80-110) mg/dL Lactate (0.7-2.1) mmol/L Calcium (8.4-10.2) mg/dL Total Bilirubin (0.2-1.3) mg/dL AST (17-59) IU/L ALT (<50) IU/L Alkaline Phosphatase (38-126) U/L Troponin I (0.01-0.034) ng/mL NT-Pro-B Natriuret Pep (<125) pg/mL Total Protein (6.3-8.2) g/dL Albumin (3.5-5.0) g/dL Globulin (1.7-4.1) g/dL Albumin/Globulin Ratio (1.0-2.8) Urine RBC (0-5/HPF) Urine WBC (0-5/HPF) Ur Squamous Epith Cells (0-5/HPF) Urine Bacteria (None) SARS-CoV-2 (PCR) (Negative) Influenza A (RT-PCR) (NEGATIVE) Influenza B (RT-PCR) (NEGATIVE) RSV (PCR) (Negative) MDM Narrative Medical decision making narrative: 67-year-old male with past medical history type 2 diabetes, hyperlipidemia, morbid obesity, essential hypertension, atrial fibrillation presents to the ED with 4 days of cloudy/dark urine, fatigue, muscle aches, anorexia, dry heaves/nausea. Concern for UTI versus dehydration versus electrolyte derangements versus ACS versus other. Will obtain EKG, chest x-ray, labs, UA. EKG is sinus tachycardia, no acute ST T changes, no axis deviations. Chest x- ray without acute findings. Labs consistent with mild dehydration. UA positive for UTI. UA was positive for ketones. VBG was obtained, pH normal, unlikely DKA. Patient given 2 L of IV fluids, 1 g of Rocephin IV. Prescribed cefpodoxime. Discussed findings with patient. Recommend good hydration. Recommend continuing the Ozempic for adequate glycemic control. ED return precautions discussed with patient. Patient verbalized understanding. Medical records reviewed: Yes I was immediately available in the department for consultation. Documentation has been reviewed. I agree with assessment and plan. Discharge Plan Departure Patient Disposition: Home Clinical Impression: UTI (urinary tract infection) Qualifiers: Urinary tract infection type: acute cystitis Hematuria presence: with hematuria Qualified Code(s): N30.01 - Acute cystitis with hematuria Instructions: DI for Urinary Tract Infection (UTI) Activity Restrictions/Additional Instructions: You were evaluated in the ED today for symptoms of fatigue, nausea and dark urine. Your urine tested positive for a urinary tract infection. You were given some IV antibiotics, Zofran and IV fluids. You are being prescribed antibiotics to take for the next few days. Please take those as prescribed. Please follow-up with your PCP as soon as possible. Please continue to stay well hydrated. Return to the ED if you have worsening symptoms, persistent vomiting, fever, chills. Prescriptions: New cefpodoxime 200 mg tablet 200 mg PO Q12H 10 Days Qty: 20 0RF Rx Instructions: must administer with a meal/food No Action semaglutide 1 mg/dose (4 mg/3 mL) pen injector 1 mg SUBCUT QWEEK Qty: 3 3RF metformin 500 mg tablet extended release 24 hr 1,000 mg PO BID Qty: 240 5RF gabapentin 800 mg tablet 800 mg PO BID Qty: 240 3RF (DME) blood-glucose meter Misc See Rx Instructions .Route Qty: 1 0RF Rx Instructions: check blood sugar once a day (DME) blood sugar test strips See Rx Instructions .Route .MEDSUPPLY Qty: 1 5RF Rx Instructions: check blood sugar once a day lisinopril 5 mg tablet 5 mg PO DAILY Qty: 90 0RF Rx Instructions: Keep 02/2023 appt w/Jared Khalil for continued fills. Thank you 12/08/22 ascorbic acid (vitamin C) 500 mg capsule 500 mg PO DAILY sildenafil (pulm.hypertension) 20 mg tablet 20 - 100 mg PO DAILY PRN (Reason: sexual activity) Qty: 30 11RF Rx Instructions: Take 30 minutes prior to sexual activity. aspirin 81 mg tablet,delayed release (DR/EC) 81 mg PO DAILY carvedilol 12.5 mg tablet 12.5 mg PO BID Qty: 180 3RF (DME) DISABLED PARKING PERMIT See Rx Instructions .ROUTE .MEDSUPPLY Qty: 1 0RF Rx Instructions: I FIND THIS PATIENT TO BE MEDICALLY DISABLED AND QUALIFIED FOR DISABLE PARKING INDICATED, AND SIGNED ON THE ACCOMPANYING [employer] APPLICATION FOR INDIVIDUALS atorvastatin 40 mg tablet 40 mg PO BEDTIME Qty: 90 3RF Referrals: Fabiola Garcia MD [Primary Care Provider] - Stand Alone Forms: Patient Portal/API
[2023-03-13] MEDS: ACETAMINOPHEN 325 MG TABLET 975 MG PO (19:11)
== END 2023-03-13 19:13 | disposition home or self-care (01) ==
PROVIDERS: Emergency Medicine; Emergency Provider Student in an Organized Health Care Education/Training Program; PCP Student in an Organized Health Care Education/Training Program
DX: N30.01 Acute cystitis with hematuria (principal); R30.0 Dysuria; R53.83 Other fatigue
CPT/HCPCS: 0241U; 36415; 71045; 80053; 81015; 82805; 83605; 83880; 84484; 85025; 85610; 87077; 87086; 87186; 93005; 93010; 96374; 99284; J0696; J2405

== ENCOUNTER → 2023-03-22 09:44 | Outpatient (CLI) | payer OTHER, SELFPAY ==
[2023-03-22 10:46] LABS: Cholesterol 162 mg/dL (140-199); HDL Cholesterol 33 mg/dL (40-60); LDL Cholesterol Calculated 100 mg/dL (<100); Triglycerides 145 mg/dL (35-150)
[2023-03-22 11:38] LABS: Hemoglobin A1C% w Est Avg Glu 9.3 % (4.0-6.0)
== END ==
LOC: LAB 09:45
PROVIDERS: Physician Assistant; PCP Student in an Organized Health Care Education/Training Program; Referring Provider Student in an Organized Health Care Education/Training Program; Visit Provider Student in an Organized Health Care Education/Training Program
DX: E11.69 Type 2 diabetes mellitus with other specified complication (principal); E11.29 Type 2 diabetes mellitus with other diabetic kidney complication; E78.5 Hyperlipidemia, unspecified; R80.9 Proteinuria, unspecified
CPT/HCPCS: 36415; 80061; 83036

== ENCOUNTER 2023-07-12 11:52 | Day surgery (SDC) | payer OTHER, SELFPAY ==
--- NOTE | 2023-07-12 | PATH_ITS ---
[facility] Accession Number: [id number] No. of containers..03 Tissue . 01 Material submitted: . PART A: colon - TRANSVERSE COLON PART B: colon - DESCENDING COLON POLYP PART C: colon - SIGMOID POLYP . 01 Diagnosis: Part A: TRANSVERSE COLON: Colonic mucosa with no diagnostic alterations. No active inflammation, granulomas, dysplasia, or malignancy identified. . Part B: DESCENDING COLON POLYP: Colonic mucosa with focal mucosal hyperplasia. No neoplasm identified. . Part C: SIGMOID POLYP: Hyperplastic polyp. [facility] 07/16/2023 1142 Local . 01 Electronically signed: . Lawson Agudelo MD, Pathologist NPI- [id number] . 01 Gross description: . A. Received in formalin, labeled with the patient's name, , and transverse colon, consists of three fragments of pink-blanton soft tissue ranging from 0.2 to 0.3 cm in greatest dimension. The tissue is entirely submitted in cassette A1. . B. Received in formalin, labeled with the patient's name, , and descending colon polyp, consists of a single fragment of pink-blanton soft tissue measuring 0.3 cm in greatest dimension. The tissue is entirely submitted in cassette B1. . C. Received in formalin, labeled with the patient's name, , and sigmoid polyps, consist of multiple fragments of blanton-brown soft tissue aggregating to 1.8 x 1.2 x 0.2 cm. The tissue is filtered into a mesh bag and entirely submitted in cassette C1. ([id number]) /MRV 07/16/2023 1142 Local . 01 Pathologist provided ICD-10: K63.5 . 01 CPT . 344244, [id number], [id number] Specimen Comment: A courtesy copy of this report has been sent to [phone] Performed at: 01 [facility] [address] [facility] [place], [place], [place] [id number] MD Lawson Agudelo MD Phone: [phone]
[2023-07-12 12:18] VITALS: BP 139/97; PULSE 91; RESP 18; TEMP 36.3; O2SAT 98
--- NOTE | 2023-07-12 12:52 | P.HP_ITS ---
History of Present Illness History of Present Illness Date Patient Seen: 07/12/23 Time Patient Seen: 12:52 Chief complaint: Screening Colonoscopy Narrative: Ger is a 67-year-old man who is here for colonoscopy. His last 1 was 3 years ago. He has had polyps removed in the past. [facility] Medical History (Updated 07/12/23 @ 12:53 by Kendell Jamison MD) Sleep apnea (~2001) Peripheral neuropathy Renal stone Fractures (~2015) Mumps Measles Chicken pox Adenocarcinoma of colon Ulcerative colitis (~1979) Surgical History Anesthesia History of appendectomy (~04/22/20) Family History Father Gangrene Mother Embolism Brother Cancer Brother History of heart disease Grandmother No problems noted. Other Adenocarcinoma of colon Social History Smoking Status: Former smoker alcohol intake: never Meds Home Medications and Allergies Home Medications Medication Instructions Recorded Confirmed Type ascorbic acid (vitamin C) 500 mg 500 mg PO DAILY 06/30/20 03/22/23 History capsule sildenafil (pulm.hypertension) 20 20 - 100 mg (1 - 5 x 20 mg) PO 11/22/21 03/22/23 Rx mg tablet DAILY PRN sexual activity #30 tabs aspirin 81 mg tablet,delayed 81 mg PO DAILY 11/23/21 07/12/23 History release blood sugar test strips #1 ea 01/25/22 03/22/23 Rx blood-glucose meter #1 ea 01/25/22 03/22/23 Rx carvedilol 12.5 mg tablet 12.5 mg PO BID #180 tabs 03/14/22 07/12/23 Rx DISABLED PARKING PERMIT #1 ea 08/29/22 03/22/23 Rx lisinopril 5 mg tablet 5 mg PO DAILY #90 tabs 12/08/22 07/12/23 Rx atorvastatin 40 mg tablet 40 mg PO BEDTIME #90 tabs 01/02/23 07/12/23 Rx gabapentin 800 mg tablet 800 mg PO BID #240 tabs 02/20/23 07/12/23 Rx metformin 500 mg tablet,extended 1,000 mg (2 x 500 mg) PO BID #240 02/20/23 07/12/23 Rx release 24 hr tabs semaglutide 2 mg/dose (8 mg/3 mL) 2 mg (0.75 mL) SUBCUT QWEEK #3 mL 03/22/23 07/11/23 Rx subcutaneous pen injector sodium,potassium,mag sulfates 17.5 See Rx Instructions PO .COMPLEX 06/18/23 Rx gram-3.13 gram-1.6 gram oral soln #354 mL (Suprep Bowel Prep Kit) Allergies Allergy/AdvReac Type Severity Reaction Status Date / Time No Known Drug Allergies Allergy Unverified 03/22/23 09:02 Exam Vital Signs (past 8 hours): - 07/12/23 12:18 Temperature 97.4 F L Pulse Rate 91 H Respiratory Rate 18 Blood Pressure 139/97 H Pulse Oximetry 98 Oxygen Delivery Method Room Air Oxygen Delivery Method Room Air Const Nutritional Appearance: obese Resp Effort & Inspection: normal respiratory effort Assessment & Plan Assessment and plan (1) History of colon polyps: Status: Acute Plan We reviewed the risks and benefits colonoscopy for history of polyps and he would like to proceed.
[2023-07-12] MEDS: LACTATED RINGERS 1,000 ML 150 ML IV (13:05)
[2023-07-12 13:22] VITALS: BP 103/66; PULSE 66; RESP 16; TEMP 36.9; O2SAT 95
[2023-07-12 13:27] VITALS: BP 110/76; PULSE 89; RESP 18; O2SAT 95
--- NOTE | 2023-07-12 13:27 | PM.OP.COLON ---
Operative Date/Time/Diagnoses Date of procedure: 07/12/23 Time of procedure: 13:27 Pre-op diagnosis: History of polyps Post-op diagnosis: same Procedure & Clinicians Study performed: Colonoscopy Same procedure as scheduled: Yes Surgeon: Kendell Jamison Procedure Notes Procedure in detail: Surgeon: Kendell Jamison MD Anesthesia: Johnathon Espinoza MD Procedure: The patient was brought to the endoscopy suite, placed in left lateral decubitus position. The patient was connected to monitoring devices. A time-out was performed. Sedation was administered. Once the patient was adequately sedated, a digital rectal exam was performed and was normal. The scope was then inserted and advanced to the cecum where the appendiceal orifice was identified and photographed. The scope was then slowly withdrawn over greater than 6 minutes. The mucosa was thoroughly inspected. There was some mildly inflamed mucosa in the transverse colon and random biopsies were taken with the cold forceps and sent as ?transverse colon?. There was a 5 mm polyp in the descending colon removed with a cold forceps. Some old tattoo ink was noted in the proximal sigmoid colon but no recurrent polypoid tissue was associated with the tattoo'd region. There were 2 7 mm polyps in the sigmoid colon removed with cold snare. The scope was retroflexed in the rectum. No other abnormalities were seen. The scope was straightened and removed. The patient was awakened and brought to recovery. Scope withdrawal time: 17 minutes Sedation time: 19 minutes EBL: 5 mL Findings: Mildly inflamed transverse colon, 5 mm descending polyp and 2 7 mm sigmoid polyps Post-procedure Disposition: PACU
[2023-07-12 13:31] VITALS: BP 121/76; PULSE 85; RESP 11; O2SAT 97
== END 2023-07-12 13:42 | disposition home or self-care (01) ==
PROVIDERS: PCP Student in an Organized Health Care Education/Training Program; Referring Provider Surgery; Visit Provider Surgery
PROC: 0DJD8ZZ Inspection of Lower Intestinal Tract, Via Natural or Artificial Opening Endoscopic (ICD-10-PCS; CPT 45378; principal; 2023-07-12 13:00)
DX: Z12.11 Encounter for screening for malignant neoplasm of colon (principal); Z86.010 Personal history of colon polyps; D12.5 Benign neoplasm of sigmoid colon; K63.5 Polyp of colon
CPT/HCPCS: 45385; 45380; J2704

== ENCOUNTER → 2024-01-25 08:51 | Outpatient (CLI) | payer OTHER, SELFPAY ==
[2024-01-25 10:06] LABS: Creatinine Urine Random 110.29 mg/dL
[2024-01-25 10:32] LABS: Hemoglobin A1C% w Est Avg Glu 5.7 % (4.0-6.0)
[2024-01-25 10:48] LABS: Cholesterol 150 mg/dL (140-199); HDL Cholesterol 35 mg/dL (40-60); LDL Cholesterol Calculated 88 mg/dL (<100); Triglycerides 133 mg/dL (35-150)
[2024-01-25 11:14] LABS: Prostate Specific Antigen 2.95 ng/mL (0.10-4.00)
== END ==
PROVIDERS: PCP Student in an Organized Health Care Education/Training Program; Referring Provider Student in an Organized Health Care Education/Training Program; Visit Provider Student in an Organized Health Care Education/Training Program
DX: Z12.5 Encounter for screening for malignant neoplasm of prostate (principal); E11.69 Type 2 diabetes mellitus with other specified complication; E78.5 Hyperlipidemia, unspecified; I10 Essential (primary) hypertension
CPT/HCPCS: 36415; 80061; 82043; 82570; 83036; 84153

== ENCOUNTER → 2024-04-25 08:41 | Outpatient (CLI) | payer MEDICARE, SELFPAY ==
[2024-04-25 09:32] LABS: Add Manual Diff / Slide Review NO; Basophils Absolute Auto 100 /uL (0-100); Basophils Percent Auto 1.2 % (0-2); Eosinophils Absolute Auto 100 /uL (0-450); Eosinophils Percent Auto 1.2 % (2-4); Hematocrit 43.1 % (41-53); Hemoglobin 14.9 g/dL (13.5-17.5); Lymphocytes Absolute Auto 2100 /uL (1100-4500); Lymphocytes Percent Auto 25.3 % (25-40); Mean Corpuscular HGB Conc 34.5 % (30-36); Mean Corpuscular Volume 89.8 fL (80-100); Monocytes Absolute Auto 700 /uL (0-900); Monocytes Percent Auto 7.9 % (3-14); Neutrophils Absolute Auto 5400 /uL (1500-7000); Neutrophils Percent Auto 64.4 % (50-75); Platelet Count 180 X10^3/uL (150-400); Red Blood Cell Count 4.81 X10^6/uL (4.5-5.9); Red Cell Distribution Width 14.8 % (11.6-14.8); White Blood Cell Count 8.3 X10^3/uL (4.5-11.0)
[2024-04-25 10:15] LABS: Alanine Aminotransferase 29 IU/L (<50); Albumin 4.8 g/dL (3.5-5.0); Albumin Globulin Ratio 1.8 (1.0-2.8); Alkaline Phosphatase 72 U/L (38-126); Aspartate Aminotransferase 27 IU/L (17-59); BUN Creatinine Ratio 14.9 (6-22); Blood Urea Nitrogen 13 mg/dL (9-20); Calcium 9.9 mg/dL (8.4-10.2); Carbon Dioxide 24 mmol/L (22-32); Chloride 106 mmol/L (98-107); Cholesterol 142 mg/dL (140-199); Estimated Glomerular Filt Rate > 60 mL/min (>60); Globulin 2.6 g/dL (1.7-4.1); Glucose 106 mg/dL (80-110); HDL Cholesterol 37 mg/dL (40-60); HEMOLYSIS < 15 (0-50); LDL Cholesterol Calculated 81 mg/dL (<100); Potassium 4.6 mmol/L (3.4-5.1); Sodium 139 mmol/L (137-145); Total Protein 7.4 g/dL (6.3-8.2); Triglycerides 120 mg/dL (35-150)
[2024-04-25 10:44] LABS: Creatinine Urine Random 174.03 mg/dL
[2024-04-25 10:48] LABS: Hemoglobin A1C% w Est Avg Glu 5.6 % (4.0-6.0)
[2024-04-25 10:50] LABS: Microalbumin Urine Random 7.9 mg/dL (0-1.6)
== END ==
LOC: LAB 08:42
PROVIDERS: PCP Student in an Organized Health Care Education/Training Program; Referring Provider Student in an Organized Health Care Education/Training Program; Visit Provider Student in an Organized Health Care Education/Training Program
DX: E11.9 Type 2 diabetes mellitus without complications (principal); I10 Essential (primary) hypertension; I48.91 Unspecified atrial fibrillation
CPT/HCPCS: 36415; 80053; 80061; 82043; 82570; 83036; 85025